=== PATIENT | male | born 1990 | race Asian ===

== ENCOUNTER 2017-04-02 08:38 | Emergency (ER) | END 2017-04-02 13:30 | disposition home or self-care (01) ==

== ENCOUNTER → 2017-07-17 | Outpatient (CLI) | END | disposition home or self-care (01) ==

== ENCOUNTER 2017-08-31 09:26 | Day surgery (SDC) | END 2017-08-31 15:12 | disposition home or self-care (01) ==

== ENCOUNTER 2018-05-16 23:46 | Emergency (ER) | payer OTHER ==
[~2018-05-16] VITALS: Ht 172.7 cm; Wt 88.2 kg
[2018-05-16 23:52] VITALS: Ht 172.7 cm; Wt 88.2 kg
[2018-05-17] MEDS ORDERED: ACETAMINOPHEN 500 MG TAB PO STA (04:51)
[2018-05-17] MEDS ORDERED: KETOROLAC 60 MG INJ IM STA (04:51)
[2018-05-17] MEDS ORDERED: MAGNESIUM CITRATE 300 ML BTL PO ONE ×2 (06:00→06:30)
[2018-05-17] MEDS ORDERED: ACET500C5 PO (06:05)
[2018-05-17] MEDS ORDERED: IBUP-1544 PO (06:05)
[2018-05-17] MEDS ORDERED: DOCU-144 PO (06:07)
[2018-05-17 06:18] VITALS: BP 142/92; PULSE 69; RESP 19
--- NOTE | 2018-05-19 10:59 | ERD ---
ER Documentation Chief Complaint Chief Complaint lower back pain x 1 week, denies trauma, also c/o abd pain HPI 27 year-old [male] coming in today with Chief Complaint: Back pain History of Present Illness: Patient coming in today with complaint of lower back pain for 1 week. Denies trauma. Reports intermittent abdominal pain radiating to right and left lower quadrants. Denies any urinary symptoms. Denies any feelings of illness including fatigue, decreased appetite. Review of systems: All systems were reviewed and are negative except for what is indicated in the history of present illness. Past Medical History: [Negative for hypertension, diabetes or other medical problems]; positive surgical history for pilonidal cyst fistula Social History: [Patient denies tobacco, alcohol, elicit drug use] Medications: [None] Allergies: [NKDA] Social Concerns: Denies ROS All systems reviewed and are negative except as per history of present illness. Medications Home Meds Active Scripts Docusate Sodium* (Colace*) 100 Mg Capsule, 100 MG PO BID for constipation for 5 Days, #10 CAP Prov:ROBERT KILPATRICK V [employer] INFORMATION EXPEDITER 05/17/18 Acetaminophen* (Tylophen*) 500 Mg Capsule, 2 CAP PO Q8H PRN for PAIN AND OR ELEVATED TEMP, #30 CAP Prov:ROBERT KILPATRICK V [employer] INFORMATION EXPEDITER 05/17/18 Ibuprofen* (Ibuprofen*) 800 Mg Tablet, 800 MG PO Q6H PRN for PAIN AND/OR INFLAMMATION, #30 TAB Prov:ROBERT KILPATRICK V [employer] INFORMATION EXPEDITER 05/17/18 Allergies Allergies: Coded Allergies: No Known Drug Allergy (Unverified Allergy, Unknown, 08/31/17) PMhx/Soc History of Surgery: Yes (APPY,hemmorrhoidectomy fistula repair) Anesthesia Reaction: No Hx Neurological Disorder: No Hx Respiratory Disorders: No Hx Cardiac Disorders: No Hx Psychiatric Problems: No Hx Miscellaneous Medical Probl: No Hx Alcohol Use: No Hx Substance Use: No Hx Tobacco Use: No Smoking Status: Never smoker FmHx Family History: diabetes, other; No coronary disease Physical Exam Vitals Vital Signs Date Temp Pulse Resp B/P (MAP) Pulse Ox O2 O2 Flow FiO2 Time Delivery Rate 05/17/18 97.7 69 19 142/92 98 Room Air 06:18 (109) 05/16/18 98.1 86 18 119/72 98 23:52 (88) Physical Exam Const: No acute distress, no grimacing noted Head: Atraumatic Eyes: Normal Conjunctiva ENT: Normal External Ears, Nose and Mouth. Neck: Full range of motion. No meningismus. Resp: Clear to auscultation bilaterally Cardio: Regular rate and rhythm, no murmurs Abd: Soft, non tender, non distended. Normal bowel sounds Skin: No petechiae or rashes Back: No midline or flank tenderness. No CVA tenderness. No reproducible pain to midline or paraspinal. Ext: No cyanosis, or edema Neur: Awake and alert Psych: Normal Mood and Affect Results 24 hrs Laboratory Tests Test 05/17/18 05:20 Urine Color STRAW Urine Clarity CLEAR Urine pH 5.0 Urine Specific [place] 1.015 Urine Ketones NEGATIVE mg/dL Urine Nitrite NEGATIVE mg/dL Urine Bilirubin NEGATIVE mg/dL Urine Urobilinogen NEGATIVE mg/dL Urine Leukocyte Esterase NEGATIVE Gurmeet/ul Urine Microscopic RBC 0 /HPF Urine Microscopic WBC 0 /HPF Urine Hemoglobin 1+ mg/dL Urine Glucose NEGATIVE mg/dL Urine Total Protein NEGATIVE mg/dl Current Medications Medications Dose Sig/Rand Start Time Status Last (Trade) Ordered Route PRN Stop Time Admin Dose Reason Admin Ketorolac 60 mg ONCE STAT 05/17/18 DC Tromethamine IM 04:51 (Toradol) 05/17/18 04:53 1,000 mg ONCE STAT 05/17/18 DC 05/17/18 Acetaminophen PO 04:51 04:59 (Tylenol 05/17/18 04:53 Tab) Magnesium 300 ml ONCE ONCE 05/17/18 DC Citrate PO 06:00 (Citroma) 05/17/18 06:02 Magnesium 150 ml ONCE ONCE 05/17/18 DC 05/17/18 Citrate PO 06:30 06:40 (Citroma) 05/17/18 06:31 Procedures/MDM ED course includes a thorough examination and history. ED course includes radiology imaging; x-ray Abdomen KUB. ED course includes medications; acetaminophen and Toradol. Low suspicion for life-threatening medical emergency, gastrointestinal or g enitourinary. Otherwise healthy patient presenting with constellation of symptoms likely representing uncomplicated back pain possibly due to passed kidney stone due to hematuria/secondary diagnoses of constipation as characterized by history, physical exam findings [radiologic/lab findings]. Urinalysis showing hematuria, no infection. X-ray showing mild to moderate stool. Patient reassessment: Patient updated on labs and radiology findings. Patient states he wants to know what pain is from, does not believe it is from constipation because it feels deeper. Patient abdominal and back exam unremarkable. No warranting for further testing of ultrasound or CT of abdomen pelvis at this time. Patient able to urinate without difficulty. No concern for kidney pathology. Educated patient on apparent return precautions and follow-up. No respiratory distress, otherwise relatively well appearing and nontoxic. Patient educated on diagnoses, prescriptions, follow-up care, return precautions. Strict return precautions given for worsening condition; questions answered discharge. Disposition for discharge with followup in 2-3 days with PCP/clinic. Departure Diagnosis: Primary Impression: Constipation Additional Impression: Hematuria Condition: Stable Patient Instructions: Kidney Stones: Your Evaluation, Constipation (Adult), Hematuria Additional Instructions: Call your primary care doctor TOMORROW for an appointment during the next 2-3 days.See the doctor sooner or return here if your condition worsens before your appointment time. X-rays not showing any abnormalities, only mild to moderate constipation. No signs of kidney stone. You have mild amount of blood in your urine, could have possibly passed kidney stone. Does follow-up with primary care doctor in 2-3 days for reevaluation of symptoms and for further care. Return to ER for severe symptoms of nausea vomiting persistent, fever, severe abdominal pain, confusion, inability to self hydrate. ROBERT KILPATRICK NP May 19, 2018 10:59
== END 2018-05-17 06:45 | disposition home or self-care (01) ==
LOC: FTE 23:46
DX: K59.00 Constipation, unspecified (principal); R31.9 Hematuria, unspecified
CPT/HCPCS: 74019; 81001; Z7502; Z7610; J1885